=== PATIENT | male | born 1950 | race Two or more races ===

== ENCOUNTER 2023-04-28 09:17 | Inpatient (IN) | payer OTHER ==
[~2023-04-28] VITALS: Ht 177.8 cm; Wt 135.4 kg
[2023-04-28 10:24] LABS: Albumin 3.3 g/dL (3.4-5.0); Calcium 8.5 mg/dL (8.5-10.1)
[2023-04-28 10:26] LABS: INR 1.13 (0.9-1.15); Partial Thromboplastin Time 35.6 SEC (24.5-34.5); Prothrombin Time 11.8 sec (9.3-11.8)
[2023-04-28 10:29] LABS: BUN/Creatinine Ratio 14.3 (10.0-20.0); Bilirubin, Total 0.7 mg/dL (0.2-1.0); Total Protein 7.4 g/dL (6.4-8.2)
[2023-04-28 10:34] LABS: Basophils # (auto) 0 10 ^3/uL (0-0.2); Basophils % (auto) 0.3 % (0.0-2.0); Eosinophils # (auto) 0.2 10 ^3/uL (0-0.8); Eosinophils % (auto) 1.6 % (0.0-7.0); Hematocrit 39.3 % (41.0-53.0); Hemoglobin 13.2 g/dL (13.5-17.5); Lymphocytes # (auto) 0.9 10 ^3/uL (0.4-5.4); Lymphocytes % (auto) 8.5 % (10.0-50.0); Mean Corpuscular Hgb Conc. 33.5 g/dL (32.0-36.0); Mean Corpuscular Volume 86.5 fL (80.0-100.0); Monocytes % (auto) 9.7 % (0.0-12.0); Neutrophils # (auto) 8.1 10 ^3/uL (1.6-8.6); Neutrophils % (auto) 79.9 % (37.0-80.0); Nucleated Red Blood Cells % 0.2 %; Red Blood Cells 4.55 10^6/uL (4.5-5.90); Red Cell Distribution Width 13.3 % (11.8-14.3); White Blood Cell 10.1 10^3/uL (4.4-10.8)
[2023-04-28] MEDS ORDERED: FUROSEMIDE 40 MG/4 ML VIAL IV ONE (12:15)
[2023-04-28 12:57] VITALS: PULSE 53; RESP 24; O2SAT 96
[2023-04-28] MEDS ORDERED: MORPHINE SULFATE INJ 2 MG/ml SYRG IV PRN (22:45)
[2023-04-28] MEDS ORDERED: DOCUSATE SOD 100 MG CAP PO PRN (22:45)
[2023-04-28] MEDS ORDERED: ONDANSETRON HCL 4 MG/2 ML VIAL IV PRN (22:45)
[2023-04-28] MEDS ORDERED: NITROGLYCERIN 0.4 MG SL TAB SL PRN (22:45)
[2023-04-28] MEDS ORDERED: HYDROcodone-ACET 5/325MG TAB PO PRN (22:45)
[2023-04-28] MEDS ORDERED: ACETAMINOPHEN 325 MG TAB PO PRN (22:45)
[2023-04-28 23:23] VITALS: BP 134/59; PULSE 53; RESP 22; TEMP 98.3; O2SAT 96
[2023-04-29] VITALS (13 sets, daily range): BP systolic 150; BP diastolic 85–87; PULSE 53–70; RESP 16–20; TEMP 36.6; O2SAT 92–100
[2023-04-29] MEDS: ALBUTEROL SULF 2.5 MG/0.5ML(0.5%) NEB SOLN NEB SCH ×4 (00:36→18:17)
[2023-04-29] MEDS: IPRATROPIUM BROM 0.5 MG/2.5ML INH SOL NEB SCH ×4 (00:37→18:17)
[2023-04-29 06:13] LABS: Basophils # (auto) 0.1 10 ^3/uL (0-0.2); Eosinophils # (auto) 0.2 10 ^3/uL (0-0.8); Eosinophils % (auto) 2.9 % (0.0-7.0); Hematocrit 36.9 % (41.0-53.0); Hemoglobin 12.8 g/dL (13.5-17.5); Lymphocytes # (auto) 1.3 10 ^3/uL (0.4-5.4); Lymphocytes % (auto) 15.3 % (10.0-50.0); Mean Corpuscular Hemoglobin 29.7 pg (28.0-32.0); Mean Corpuscular Hgb Conc. 34.7 g/dL (32.0-36.0); Mean Corpuscular Volume 85.5 fL (80.0-100.0); Monocytes % (auto) 11.9 % (0.0-12.0); Neutrophils # (auto) 5.8 10 ^3/uL (1.6-8.6); Neutrophils % (auto) 68.9 % (37.0-80.0); Nucleated Red Blood Cells % 0.1 %; Red Blood Cells 4.32 10^6/uL (4.5-5.90); Red Cell Distribution Width 12.9 % (11.8-14.3); White Blood Cell 8.4 10^3/uL (4.4-10.8)
[2023-04-29 06:34] LABS: Calcium 8.5 mg/dL (8.7-10.4)
[2023-04-29 06:36] LABS: BUN/Creatinine Ratio 19.7 (10.0-20.0)
[2023-04-29] MEDS: FUROSEMIDE 40 MG/4 ML VIAL IV SCH ×2 (09:12→22:12)
[2023-04-29] MEDS: ENOXAPARIN SOD 40 MG/0.4 ML SYRINGE SC SCH (09:13)
[2023-04-29 11:08] LABS: Urine Bacteria NONE SEEN /hpf (None Seen); Urine Blood Negative /uL (Negative); Urine Clarity Clear (Clear); Urine Color Yellow (Yellow); Urine Protein, UAD 1+ (Negative); Urine Specific Gravity 1.044 (1.001-1.035); Urine Urobilinogen Normal (Negative); Urine WBC 1 /hpf (0 - 3); Urine pH 6.5 (5.0-8.0)
[2023-04-29] MEDS ORDERED: METO25TA93 PO (18:59)
[2023-04-29] MEDS ORDERED: RIVA10TA PO (18:59)
[2023-04-29] MEDS ORDERED: OMEP-434 PO (18:59)
[2023-04-29] MEDS ORDERED: AMLO1TAB22 PO (18:59)
[2023-04-29] MEDS ORDERED: ATOR10TA52 PO (18:59)
[2023-04-30] VITALS (13 sets, daily range): BP systolic 119–174; BP diastolic 56–73; PULSE 56–85; RESP 16–21; TEMP 98–98.6; O2SAT 92–100
[2023-04-30] MEDS: IPRATROPIUM BROM 0.5 MG/2.5ML INH SOL NEB SCH ×4 (00:31→18:38)
[2023-04-30] MEDS: ALBUTEROL SULF 2.5 MG/0.5ML(0.5%) NEB SOLN NEB SCH ×4 (00:31→18:37)
[2023-04-30 07:07] LABS: Anion Gap 7.7 (5-15); Calcium 8.3 mg/dL (8.5-10.1); Carbon Dioxide 27.3 mmol/L (20-30); Chloride 92 mmol/L (98-107); Potassium 3.8 mmol/L (3.5-5.1); Sodium 127 mmol/L (136-145)
[2023-04-30 07:10] LABS: Basophils # (auto) 0 10 ^3/uL (0-0.2); Basophils % (auto) 0.3 % (0.0-2.0); Eosinophils # (auto) 0.2 10 ^3/uL (0-0.8); Eosinophils % (auto) 2.3 % (0.0-7.0); Hematocrit 38.5 % (41.0-53.0); Hemoglobin 13.3 g/dL (13.5-17.5); Lymphocytes # (auto) 0.8 10 ^3/uL (0.4-5.4); Lymphocytes % (auto) 10.6 % (10.0-50.0); Mean Corpuscular Hemoglobin 29.3 pg (28.0-32.0); Mean Corpuscular Hgb Conc. 34.4 g/dL (32.0-36.0); Mean Corpuscular Volume 85.1 fL (80.0-100.0); Monocytes % (auto) 12.2 % (0.0-12.0); Neutrophils # (auto) 5.9 10 ^3/uL (1.6-8.6); Neutrophils % (auto) 74.6 % (37.0-80.0); Nucleated Red Blood Cells % 0.3 %; Red Blood Cells 4.53 10^6/uL (4.5-5.90); Red Cell Distribution Width 12.9 % (11.8-14.3)
[2023-04-30 07:12] LABS: BUN/Creatinine Ratio 12.5 (10.0-20.0); Blood Urea Nitrogen 9 mg/dL (9-23); Glucose 102 mg/dL (74-106)
[2023-04-30] MEDS: FUROSEMIDE 40 MG/4 ML VIAL IV SCH ×2 (08:38→21:01)
[2023-04-30] MEDS: ENOXAPARIN SOD 40 MG/0.4 ML SYRINGE SC SCH (08:38)
[2023-04-30] MEDS: POTASSIUM CHLORIDE 8 MEQ TAB PO SCH (21:00)
[2023-05-01] VITALS (19 sets, daily range): BP systolic 106–157; BP diastolic 53–67; PULSE 68–142; RESP 18–22; TEMP 97.3–98.6; O2SAT 93–100
[2023-05-01] MEDS: IPRATROPIUM BROM 0.5 MG/2.5ML INH SOL NEB SCH ×5 (00:43→23:36)
[2023-05-01] MEDS: ALBUTEROL SULF 2.5 MG/0.5ML(0.5%) NEB SOLN NEB SCH ×5 (00:43→23:36)
[2023-05-01 06:30] LABS: Chloride 91 mmol/L (98-107); Potassium 3.4 mmol/L (3.5-5.1); Sodium 127 mmol/L (136-145)
[2023-05-01 06:31] LABS: Anion Gap 8.3 (5-15); Calcium 8.4 mg/dL (8.7-10.4); Carbon Dioxide 27.7 mmol/L (20-30)
[2023-05-01 06:36] LABS: BUN/Creatinine Ratio 8.1 (10.0-20.0); Blood Urea Nitrogen 6 mg/dL (9-23); Glucose 102 mg/dL (74-106)
[2023-05-01 06:45] LABS: Basophils # (auto) 0 10 ^3/uL (0-0.2); Basophils % (auto) 0.2 % (0.0-2.0); Eosinophils # (auto) 0.2 10 ^3/uL (0-0.8); Eosinophils % (auto) 2.7 % (0.0-7.0); Hematocrit 37.5 % (41.0-53.0); Lymphocytes # (auto) 1.2 10 ^3/uL (0.4-5.4); Lymphocytes % (auto) 15.3 % (10.0-50.0); Mean Corpuscular Hemoglobin 29.8 pg (28.0-32.0); Mean Corpuscular Hgb Conc. 34.6 g/dL (32.0-36.0); Mean Corpuscular Volume 86.2 fL (80.0-100.0); Monocytes % (auto) 13.6 % (0.0-12.0); Neutrophils # (auto) 5.2 10 ^3/uL (1.6-8.6); Neutrophils % (auto) 68.2 % (37.0-80.0); Nucleated Red Blood Cells % 0.1 %; Red Blood Cells 4.35 10^6/uL (4.5-5.90); Red Cell Distribution Width 12.8 % (11.8-14.3); White Blood Cell 7.6 10^3/uL (4.4-10.8)
[2023-05-01] MEDS: POTASSIUM CHLORIDE 8 MEQ TAB PO SCH ×2 (09:36→22:29)
[2023-05-01] MEDS: ENOXAPARIN SOD 40 MG/0.4 ML SYRINGE SC SCH (09:37)
[2023-05-01] MEDS: FUROSEMIDE 40 MG/4 ML VIAL IV SCH ×2 (09:37→22:31)
[2023-05-01 10:50] LABS: Base Excess 2.2 mmol/L (-2.0-2.0)
[2023-05-01] MEDS ORDERED: LISI10TA34 PO (13:24)
[2023-05-01] MEDS ORDERED: BUME2TAB5 PO (13:24)
[2023-05-01] MEDS ORDERED: dilTIAZem 25 MG/5 ML VIAL IV ONE (19:30)
[2023-05-01] MEDS ORDERED: AMIODARONE BOLUS KIT 100 ML IV ONE (20:00)
[2023-05-01] MEDS ORDERED: AMIODARONE 450mg/250ml AE 250 ML IV ONE (20:15)
[2023-05-01] MEDS ORDERED: APIXABAN 5 MG TAB PO ONE (20:30)
[2023-05-01 20:34] LABS: Potassium 3.6 mmol/L (3.5-5.1)
[2023-05-01 20:41] LABS: Magnesium 1.7 mg/dL (1.6-2.6)
[2023-05-02] VITALS (7 sets, daily range): BP systolic 133–148; BP diastolic 34–59; PULSE 77–86; RESP 18–20; TEMP 98.6–98.7; O2SAT 93–97
[2023-05-02] MEDS ORDERED: AMIODARONE 450mg/250ml AE 250 ML IV SCH (02:15)
[2023-05-02] MEDS: ALBUTEROL SULF 2.5 MG/0.5ML(0.5%) NEB SOLN NEB SCH ×2 (06:14→11:32)
[2023-05-02] MEDS: IPRATROPIUM BROM 0.5 MG/2.5ML INH SOL NEB SCH ×2 (06:14→11:32)
[2023-05-02 06:59] LABS: Chloride 90 mmol/L (98-107); Potassium 3.5 mmol/L (3.5-5.1); Sodium 125 mmol/L (136-145)
[2023-05-02 07:00] LABS: Calcium 8.6 mg/dL (8.7-10.4)
[2023-05-02 07:05] LABS: BUN/Creatinine Ratio 8.8 (10.0-20.0); Blood Urea Nitrogen 7 mg/dL (9-23); Glucose 113 mg/dL (74-106)
[2023-05-02 07:08] LABS: Basophils # (auto) 0 10 ^3/uL (0-0.2); Basophils % (auto) 0.3 % (0.0-2.0); Eosinophils # (auto) 0.2 10 ^3/uL (0-0.8); Eosinophils % (auto) 2.8 % (0.0-7.0); Hematocrit 38.9 % (41.0-53.0); Hemoglobin 13.4 g/dL (13.5-17.5); Lymphocytes # (auto) 1.2 10 ^3/uL (0.4-5.4); Lymphocytes % (auto) 13.4 % (10.0-50.0); Mean Corpuscular Hemoglobin 29.8 pg (28.0-32.0); Mean Corpuscular Hgb Conc. 34.4 g/dL (32.0-36.0); Mean Corpuscular Volume 86.7 fL (80.0-100.0); Monocytes # (auto) 0.9 10 ^3/uL (0-1.3); Monocytes % (auto) 10.1 % (0.0-12.0); Neutrophils # (auto) 6.6 10 ^3/uL (1.6-8.6); Neutrophils % (auto) 73.4 % (37.0-80.0); Nucleated Red Blood Cells % 0.1 %; Red Blood Cells 4.49 10^6/uL (4.5-5.90); Red Cell Distribution Width 12.6 % (11.8-14.3)
[2023-05-02] MEDS: FUROSEMIDE 40 MG/4 ML VIAL IV SCH (10:00)
[2023-05-02] MEDS: POTASSIUM CHLORIDE 8 MEQ TAB PO SCH (10:23)
== END 2023-05-02 12:40 | disposition home or self-care (01) | DRG 291 ==
LOC: ER 09:17 → TELE 04-29 02:30 → TELE-CENTR 04-29 21:15
PROVIDERS: ADMIT Nurse Practitioner Family; ATTEND Hospitalist
PROC: 5A09357 Assistance with Respiratory Ventilation, Less than 24 Consecutive Hours, Continuous Positive Airway Pressure (ICD-10-PCS; principal; 2023-04-29)
DX: I11.0 Hypertensive heart disease with heart failure (principal); I50.43 Acute on chronic combined systolic (congestive) and diastolic (congestive) heart failure; J96.20 Acute and chronic respiratory failure, unspecified whether with hypoxia or hypercapnia; E87.1 Hypo-osmolality and hyponatremia; Z68.41 Body mass index [BMI] 40.0-44.9, adult; E66.01 Morbid (severe) obesity due to excess calories; G47.30 Sleep apnea, unspecified; R00.1 Bradycardia, unspecified; R26.2 Difficulty in walking, not elsewhere classified; R79.89 Other specified abnormal findings of blood chemistry
CPT/HCPCS: 36415; 36600; 71045; 71275; 80048; 80053; 81001; 82805; 83735; 83880; 84132; 84484; 85025; 85610; 85730; 86703; 86706; 86708; 86803; 87340; 93005; 93306; 93970; 94640; 94660; 97110; 97116; 97163; 97530; 99291; G0378

== ENCOUNTER 2023-06-21 13:56 | Emergency (ER) | payer OTHER ==
[~2023-06-21] VITALS: Ht 177.8 cm; Wt 131.8 kg
[~2023-06-21 13:56] MED LIST: ATOR10TA52 PO; BUME2TAB5 PO; LISI10TA34 PO; METO25TA93 PO; OMEP-434 PO; RIVA10TA PO
[2023-06-21 14:40] LABS: Basophils # (auto) 0.1 10 ^3/uL (0-0.2); Basophils % (auto) 1.5 % (0.0-2.0); Eosinophils # (auto) 0.3 10 ^3/uL (0-0.8); Eosinophils % (auto) 3.4 % (0.0-7.0); Hematocrit 41.9 % (41.0-53.0); Lymphocytes # (auto) 1.7 10 ^3/uL (0.4-5.4); Lymphocytes % (auto) 21.1 % (10.0-50.0); Mean Corpuscular Hemoglobin 29.5 pg (28.0-32.0); Mean Corpuscular Hgb Conc. 33.4 g/dL (32.0-36.0); Mean Corpuscular Volume 88.5 fL (80.0-100.0); Monocytes # (auto) 0.7 10 ^3/uL (0-1.3); Monocytes % (auto) 9.2 % (0.0-12.0); Neutrophils # (auto) 5.3 10 ^3/uL (1.6-8.6); Neutrophils % (auto) 64.8 % (37.0-80.0); Red Blood Cells 4.74 10^6/uL (4.5-5.90); Red Cell Distribution Width 13.1 % (11.8-14.3); White Blood Cell 8.1 10^3/uL (4.4-10.8)
[2023-06-21 14:55] LABS: Alanine Aminotransferase 13 U/L (7-40); Albumin 4.2 g/dL (3.2-4.8); Alkaline Phosphatase 125 U/L (46-116); Anion Gap 8 (5-15); Aspartate Aminotransferase 20 U/L (13-40); BUN/Creatinine Ratio 11.7 (10.0-20.0); Bilirubin, Total 0.7 mg/dL (0.2-1.0); Blood Urea Nitrogen 12 mg/dL (9-23); Calcium 8.7 mg/dL (8.7-10.4); Carbon Dioxide 27 mmol/L (20-30); Chloride 100 mmol/L (98-107); Glucose 125 mg/dL (74-106); Potassium 3.9 mmol/L (3.5-5.1); Sodium 135 mmol/L (136-145); Total Protein 6.4 g/dL (5.7-8.2)
[2023-06-21] MEDS ORDERED: SODIUM CHLORIDE 0.9% 1,000 ML IV ONE (16:00)
[2023-06-21 16:45] LABS: INR 1.15 (0.9-1.15); Partial Thromboplastin Time 33.6 SEC (24.5-34.5)
[2023-06-21] MEDS ORDERED: MECLIZINE HCL 25 MG TAB PO ONE (18:15)
[2023-06-21] MEDS ORDERED: MECL1TAB42 PO ×3 (18:38→19:08)
[2023-06-21 19:26] VITALS: BP 173/73; PULSE 60; RESP 18; TEMP 97.8; O2SAT 94
== END 2023-06-21 19:28 | disposition home or self-care (01) ==
LOC: ER 13:56
DX: I11.0 Hypertensive heart disease with heart failure (principal); I50.9 Heart failure, unspecified; R42 Dizziness and giddiness; E66.9 Obesity, unspecified; E78.5 Hyperlipidemia, unspecified; Z68.35 Body mass index [BMI] 35.0-35.9, adult; Z79.899 Other long term (current) drug therapy
CPT/HCPCS: 36415; 70450; 71046; 80053; 83735; 84484; 85025; 85610; 85730; 93005; 99285; J8597

== ENCOUNTER 2023-10-13 16:44 | Emergency (ER) | payer OTHER, MEDICAID ==
[~2023-10-13] VITALS: Ht 177.8 cm; Wt 130.0 kg
[~2023-10-13 16:44] MED LIST changes: +MECL1TAB42 PO
[2023-10-13 20:00] VITALS: PULSE 59; RESP 15; O2SAT 97
[2023-10-13] MEDS: KETAMINE 50mg/ML 10ml Vial (500mg/10ml) IV ONE (20:17)
[2023-10-13] MEDS: KETAMINE 50mg/ML 1ml syringe IV ONE (20:41)
[2023-10-13 22:30] VITALS: TEMP 97.5
[2023-10-13 23:34] VITALS: BP 175/74; PULSE 63; RESP 18; O2SAT 94
[2023-10-17] MEDS ORDERED: FUR20T PO (01:20)
[2023-10-17] MEDS ORDERED: RIV20T PO (01:20)
== END 2023-10-13 23:52 | disposition home or self-care (01) ==
LOC: ER 16:44
DX: S43.004A Unspecified dislocation of right shoulder joint, initial encounter (principal); I10 Essential (primary) hypertension; E78.5 Hyperlipidemia, unspecified; Z79.899 Other long term (current) drug therapy; W01.0XXA Fall on same level from slipping, tripping and stumbling without subsequent striking against object, initial encounter; Y93.89 Activity, other specified; Y92.89 Other specified places as the place of occurrence of the external cause; Y99.8 Other external cause status
CPT/HCPCS: 23650; 73020; 73030; 99152

== ENCOUNTER 2023-10-15 15:20 | Inpatient (IN) | payer OTHER, MEDICAID ==
[~2023-10-15] VITALS: Ht 177.8 cm; Wt 141.2 kg
[2023-10-15] MEDS: dilTIAZem 25 MG/5 ML VIAL IV ONE (15:45)
[2023-10-15] MEDS: SODIUM CHLORIDE 0.9% 1,000 ML IVB ONE (16:20)
[2023-10-15 16:28] LABS: Basophils # (auto) 0 10 ^3/uL (0-0.2); Basophils % (auto) 0.2 % (0.0-2.0); Eosinophils # (auto) 0 10 ^3/uL (0-0.8); Eosinophils % (auto) 0.4 % (0.0-7.0); Lymphocytes # (auto) 1.2 10 ^3/uL (0.4-5.4); Mean Corpuscular Hemoglobin 28.9 pg (28.0-32.0); Mean Corpuscular Hgb Conc. 32.6 g/dL (32.0-36.0); Mean Corpuscular Volume 88.8 fL (80.0-100.0); Monocytes # (auto) 1.5 10 ^3/uL (0-1.3); Monocytes % (auto) 12.6 % (0.0-12.0); Neutrophils # (auto) 9.2 10 ^3/uL (1.6-8.6); Neutrophils % (auto) 76.8 % (37.0-80.0); Nucleated Red Blood Cells % 0.1 %; Red Cell Distribution Width 13.5 % (11.8-14.3)
[2023-10-15 16:56] LABS: Chloride 99 mmol/L (98-107); Potassium 3.7 mmol/L (3.5-5.1); Sodium 135 mmol/L (136-145)
[2023-10-15 16:57] LABS: Anion Gap 8 (5-15); Calcium 9.9 mg/dL (8.5-10.1); Carbon Dioxide 28 mmol/L (20-30)
[2023-10-15 17:02] LABS: BUN/Creatinine Ratio 11.9 (10.0-20.0); Blood Urea Nitrogen 16 mg/dL (9-23); Glucose 108 mg/dL (74-106)
[2023-10-15 17:03] LABS: Blood Alcohol < 3.0 mg/dL (<10)
[2023-10-15] MEDS ORDERED: HYDROcodone-ACET 5/325MG TAB PO PRN (23:00)
[2023-10-15] MEDS ORDERED: NITROGLYCERIN 0.4 MG SL TAB SL PRN (23:00)
[2023-10-15] MEDS ORDERED: DOCUSATE SOD 100 MG CAP PO PRN (23:00)
[2023-10-15] MEDS ORDERED: ACETAMINOPHEN 325 MG TAB PO PRN (23:00)
[2023-10-15] MEDS ORDERED: MORPHINE SULFATE INJ 2 MG/ml SYRG IV PRN ×2 (23:00)
[2023-10-15] MEDS ORDERED: ONDANSETRON HCL 4 MG/2 ML VIAL IV PRN (23:00)
[2023-10-15 23:11] VITALS: PULSE 94; RESP 24; O2SAT 93
[2023-10-15] MEDS: ASPirin 325 MG TAB PO ONE (23:26)
[2023-10-15] MEDS: ENOXAPARIN SOD 100 MG/1 ML SYRINGE SC SCH (23:27)
[2023-10-15 23:33] LABS: INR 1.02 (0.9-1.15); Prothrombin Time 10.7 sec (9.3-11.8)
[2023-10-16 00:09] LABS: Alanine Aminotransferase 11 U/L (7-40); Alkaline Phosphatase 82 U/L (46-116); Anion Gap 9 (5-15); Aspartate Aminotransferase 25 U/L (13-40); BUN/Creatinine Ratio 8.6 (10.0-20.0); Bilirubin, Total 1.4 mg/dL (0.2-1.0); Blood Urea Nitrogen 14 mg/dL (9-23); Calcium 9.1 mg/dL (8.7-10.4); Carbon Dioxide 22 mmol/L (20-30); Chloride 103 mmol/L (98-107); Glucose 111 mg/dL (74-106); Potassium 3.7 mmol/L (3.5-5.1); Sodium 134 mmol/L (136-145); Total Protein 6.6 g/dL (5.7-8.2)
[2023-10-16 06:56] LABS: Anion Gap 9 (5-15); Carbon Dioxide 26 mmol/L (20-30); Chloride 101 mmol/L (98-107); Potassium 3.5 mmol/L (3.5-5.1); Sodium 136 mmol/L (136-145)
[2023-10-16 07:02] LABS: Glucose 100 mg/dL (74-106)
[2023-10-16 07:10] LABS: Basophils # (auto) 0.1 10 ^3/uL (0-0.2); Basophils % (auto) 0.5 % (0.0-2.0); Eosinophils # (auto) 0.3 10 ^3/uL (0-0.8); Eosinophils % (auto) 2.5 % (0.0-7.0); Hematocrit 35.5 % (41.0-53.0); Hemoglobin 11.9 g/dL (13.5-17.5); Lymphocytes # (auto) 2.1 10 ^3/uL (0.4-5.4); Lymphocytes % (auto) 20.5 % (10.0-50.0); Mean Corpuscular Hemoglobin 29.7 pg (28.0-32.0); Mean Corpuscular Hgb Conc. 33.5 g/dL (32.0-36.0); Mean Corpuscular Volume 88.8 fL (80.0-100.0); Monocytes # (auto) 1.3 10 ^3/uL (0-1.3); Monocytes % (auto) 12.4 % (0.0-12.0); Neutrophils # (auto) 6.6 10 ^3/uL (1.6-8.6); Neutrophils % (auto) 64.1 % (37.0-80.0); Nucleated Red Blood Cells % 0.1 %; Red Blood Cells 3.99 10^6/uL (4.5-5.90); Red Cell Distribution Width 13.5 % (11.8-14.3); White Blood Cell 10.4 10^3/uL (4.4-10.8)
[2023-10-16 07:15] LABS: BUN/Creatinine Ratio 13.9 (10.0-20.0); Blood Urea Nitrogen 19 mg/dL (9-23)
[2023-10-16 08:00] VITALS: PULSE 78; RESP 26; O2SAT 96
[2023-10-16] MEDS: METOPROLOL SUCCINATE XL 50 MG TAB PO SCH (10:22)
[2023-10-16] MEDS: ATORVASTATIN 20 MG TAB PO SCH (10:23)
[2023-10-16] MEDS: ASPirin 81 mg TAB PO SCH (10:23)
[2023-10-16] MEDS: PANTOPRAZOLE 40 MG/10 ML VIAL INJ IV SCH (10:23)
[2023-10-16 12:34] LABS: Urine Bacteria NONE SEEN /hpf (None Seen); Urine Blood Negative /uL (Negative); Urine Clarity HAZY (Clear); Urine Color Yellow (Yellow); Urine Hyaline Cast FEW /lpf (0 - 2); Urine Mucus FEW (None Seen); Urine Protein, UAD 1+ (Negative); Urine Specific Gravity 1.025 (1.001-1.035); Urine WBC 12 /hpf (0 - 3)
[2023-10-16] MEDS: LISINOPRIL 10 MG TAB PO SCH (18:28)
[2023-10-16] MEDS: FUROSEMIDE 20 MG/2 ML VIAL IV SCH (18:29)
[2023-10-16 20:00] VITALS: PULSE 88; RESP 13; O2SAT 98
[2023-10-17 01:00] VITALS: BP 147/70; PULSE 77; RESP 24; TEMP 97.4
[2023-10-17] MEDS ORDERED: METO1TAB9 PO (01:20)
[2023-10-17] MEDS ORDERED: FUR20T PO ×2 (01:20→14:57)
[2023-10-17] MEDS ORDERED: RIV20T PO ×2 (01:20→14:57)
[2023-10-17] MEDS ORDERED: IRBE300T43 PO (01:20)
[2023-10-17] MEDS ORDERED: ATOR40TA52 PO (01:20)
[2023-10-17 05:11] LABS: Basophils # (auto) 0 10 ^3/uL (0-0.2); Basophils % (auto) 0.4 % (0.0-2.0); Chloride 104 mmol/L (98-107); Eosinophils # (auto) 0.3 10 ^3/uL (0-0.8); Eosinophils % (auto) 3.1 % (0.0-7.0); Hematocrit 34.3 % (41.0-53.0); Hemoglobin 11.6 g/dL (13.5-17.5); Lymphocytes # (auto) 1.5 10 ^3/uL (0.4-5.4); Lymphocytes % (auto) 16.8 % (10.0-50.0); Mean Corpuscular Hemoglobin 29.9 pg (28.0-32.0); Mean Corpuscular Hgb Conc. 33.8 g/dL (32.0-36.0); Mean Corpuscular Volume 88.4 fL (80.0-100.0); Monocytes % (auto) 11.4 % (0.0-12.0); Neutrophils % (auto) 68.3 % (37.0-80.0); Nucleated Red Blood Cells % 0.1 %; Potassium 3.8 mmol/L (3.5-5.1); Red Blood Cells 3.88 10^6/uL (4.5-5.90); Red Cell Distribution Width 13.4 % (11.8-14.3); Sodium 137 mmol/L (136-145); White Blood Cell 8.8 10^3/uL (4.4-10.8)
[2023-10-17 05:12] LABS: Anion Gap 5 (5-15); Calcium 8.8 mg/dL (8.5-10.1); Carbon Dioxide 28 mmol/L (20-30)
[2023-10-17 05:17] LABS: BUN/Creatinine Ratio 14.3 (10.0-20.0); Blood Urea Nitrogen 14 mg/dL (9-23); Glucose 102 mg/dL (74-106)
[2023-10-17 06:00] VITALS: BP 157/71; PULSE 83; RESP 20; TEMP 98.3; O2SAT 94
[2023-10-17 08:00] VITALS: PULSE 72; RESP 16; O2SAT 98
[2023-10-17 08:30] VITALS: BP 167/66; PULSE 70; PULSE 79; RESP 18; TEMP 98.1; O2SAT 96
[2023-10-17] MEDS ORDERED: METO-159 PO ×2 (08:57→14:57)
[2023-10-17] MEDS ORDERED: MULTTAB99 PO (08:58)
[2023-10-17] MEDS ORDERED: OMEP20TA PO (08:59)
[2023-10-17] MEDS: RIVAROXABAN 10 MG TAB PO SCH (10:54)
[2023-10-17] MEDS: cloNIDine HCL 0.1 MG TAB PO ONE (13:46)
[2023-10-17] MEDS ORDERED: AMIO200T33 PO (14:57)
[2023-10-17] MEDS ORDERED: RIVAROXABAN 10 MG TAB PO SCH (18:00)
[2023-10-17] MEDS ORDERED: LISINOPRIL 10 MG TAB PO SCH (22:00)
[2023-10-18] MEDS ORDERED: METOPROLOL SUCCINATE XL 50 MG TAB PO SCH (10:00)
[2023-10-18] MEDS ORDERED: RIVAROXABAN 10 MG TAB PO SCH (10:00)
== END 2023-10-17 17:00 | disposition home or self-care (01) | DRG 281 ==
LOC: ER 15:20 → TELE 23:07 → TELE-WESTW 10-16 23:17
PROVIDERS: ADMIT Nurse Practitioner Family; ATTEND Internal Medicine
DX: I21.4 Non-ST elevation (NSTEMI) myocardial infarction (principal); I13.0 Hypertensive heart and chronic kidney disease with heart failure and stage 1 through stage 4 chronic kidney disease, or unspecified chronic kidney disease; I48.20 Chronic atrial fibrillation, unspecified; I50.30 Unspecified diastolic (congestive) heart failure; Z68.41 Body mass index [BMI] 40.0-44.9, adult; R41.82 Altered mental status, unspecified; D72.829 Elevated white blood cell count, unspecified; E78.5 Hyperlipidemia, unspecified; N18.9 Chronic kidney disease, unspecified; E66.9 Obesity, unspecified; Z82.49 Family history of ischemic heart disease and other diseases of the circulatory system; Z82.3 Family history of stroke
CPT/HCPCS: 36415; 70450; 71045; 80048; 80053; 80320; 81001; 82962; 83880; 84439; 84443; 84484; 85025; 85610; 93005; 93306; 93886; 97163; C9113; G0378

== ENCOUNTER 2024-01-27 06:10 | Day surgery (SDC) | payer OTHER, MEDICAID ==
[~2024-01-27] VITALS: Ht 177.8 cm; Wt 123.4 kg
[~2024-01-27 06:10] MED LIST changes: +ASCO500T11 PO; -ATOR10TA52 PO; +ATOR40TA52 PO; -BUME2TAB5 PO; +CINN1CAP2 PO; +FIBECAP OR; +FUR20T PO; +IRBE300T43 PO; -LISI10TA34 PO; -MECL1TAB42 PO; +METO-159 PO; -METO25TA93 PO; +MULTTAB99 PO; -OMEP-434 PO; +OMEP20TA PO; +RIV20T PO; -RIVA10TA PO; +TURM500C3 OR
[2024-01-27] MEDS ORDERED: ceFAZolin 2 GM/D5W50ml 50 ML IV ONE (06:30)
[2024-01-27] MEDS ORDERED: LIDOCAINE 2% JELLY 11ml (GLYDO) ONE (06:39)
[2024-01-27] MEDS ORDERED: MEPERIDINE HCL (50 MG/ML) 1 ML VIAL ONE (06:57)
[2024-01-27] MEDS ORDERED: GLYCOPYRROLATE 0.2 MG/ML 1ML VIAL ONE (06:57)
[2024-01-27] MEDS ORDERED: MIDAZOLAM HCL 2MG/2ML 2ml VIAL (1mg/ml) ONE (06:57)
[2024-01-27] MEDS ORDERED: DexAMETHasone SOD PHOS 10MG/1ML VIAL INJ ONE (06:57)
[2024-01-27] MEDS ORDERED: ONDANSETRON HCL 4 MG/2 ML VIAL ONE (06:57)
[2024-01-27] MEDS ORDERED: fentaNYL CITRATE 100 MCG/2 ML VL ONE (06:57)
[2024-01-27] MEDS ORDERED: LIDOCAINE 1% INJ PF 5ML AMP ONE ×2 (06:57→11:51)
[2024-01-27] MEDS ORDERED: SODIUM CHLORIDE LOCK 50 ML ONE (06:57)
[2024-01-27] MEDS ORDERED: NEOSTIGMINE 1 MG/ML INJ (10mg/10ML VIAL) ONE (06:57)
[2024-01-27] MEDS ORDERED: ROCURONIUM 10MG/ML 10ML VIAL IV ONE (06:57)
[2024-01-27] MEDS ORDERED: KETAMINE 50mg/ML 10ml Vial 10 ML ONE (06:58)
[2024-01-27] MEDS ORDERED: BUPIVACAINE HCL 0 ML ONE (07:01)
[2024-01-27] MEDS ORDERED: HYDROmorphone HCL 2 MG/ML VL/or syr IV PRN ×2 (07:30)
[2024-01-27] MEDS ORDERED: fentaNYL CITRATE 100 MCG/2 ML VL IV PRN (07:30)
[2024-01-27] MEDS ORDERED: METOCLOPRAMIDE HCL 5MG/ml INJ 2ml VIAL IV ONE (07:30)
[2024-01-27] MEDS ORDERED: MORPHINE SULFATE INJ 2 MG/ml SYRG IV PRN (07:30)
[2024-01-27] MEDS: EPINEPHrine HCL 1 MG/1 ML AMP ONE (08:52)
[2024-01-27] MEDS ORDERED: ROPIVACAINE 0.5% (5MG/ML) 20ML AMPULE IJ ONE (10:15)
[2024-01-27 10:52] VITALS: TEMP 97.4; O2SAT 98
[2024-01-27] MEDS ORDERED: hydrALAZINE HCL 20 MG/ML VL ONE (11:35)
[2024-01-27] MEDS: hydrALAZINE HCL 20 MG/ML VL IV ONE (11:36)
[2024-01-27] MEDS: KETOROLAC TROMETH 30 MG/ML 1ML VIAL IV ONE (11:47)
[2024-01-27 11:49] VITALS: PULSE 72; RESP 18; O2SAT 93
[2024-01-27] MEDS: ALBUTEROL SULF 2.5 MG/0.5ML(0.5%) NEB SOLN ONE (11:49)
[2024-01-27] MEDS: ALBUTEROL SULF 2.5 MG/0.5ML(0.5%) NEB SOLN NEB ONE (11:49)
[2024-01-27] MEDS: IPRATROPIUM BROM 0.5 MG/2.5ML INH SOL NEB ONE (11:49)
[2024-01-27] MEDS: IPRATROPIUM BROM 0.5 MG/2.5ML INH SOL ONE (11:49)
[2024-01-27 11:50] VITALS: O2SAT 93
[2024-01-27 11:59] VITALS: PULSE 78; RESP 12; O2SAT 100
== END 2024-01-27 13:02 | disposition home or self-care (01) ==
LOC: SUR 06:10
PROVIDERS: ATTEND Orthopaedic Surgery Sports Medicine
DX: M75.121 Complete rotator cuff tear or rupture of right shoulder, not specified as traumatic (principal); R06.02 Shortness of breath; S46.211A Strain of muscle, fascia and tendon of other parts of biceps, right arm, initial encounter; S43.491A Other sprain of right shoulder joint, initial encounter; M65.811 Other synovitis and tenosynovitis, right shoulder; M94.211 Chondromalacia, right shoulder; I13.0 Hypertensive heart and chronic kidney disease with heart failure and stage 1 through stage 4 chronic kidney disease, or unspecified chronic kidney disease; I50.30 Unspecified diastolic (congestive) heart failure; N18.9 Chronic kidney disease, unspecified; E66.01 Morbid (severe) obesity due to excess calories; I25.10 Atherosclerotic heart disease of native coronary artery without angina pectoris; I48.91 Unspecified atrial fibrillation; E78.5 Hyperlipidemia, unspecified; K21.9 Gastro-esophageal reflux disease without esophagitis; G62.9 Polyneuropathy, unspecified; J44.9 Chronic obstructive pulmonary disease, unspecified; I25.2 Old myocardial infarction; Z68.41 Body mass index [BMI] 40.0-44.9, adult; X58.XXXA Exposure to other specified factors, initial encounter; Y93.89 Activity, other specified; Y92.89 Other specified places as the place of occurrence of the external cause; Y99.8 Other external cause status
CPT/HCPCS: 29826; 29827; 94640; C1713; J0171; J0360; J0690; J1100; J1885; J2175; J2250; J2405; J2795; J3010; J7644; A4565; J3490

== ENCOUNTER 2025-03-16 14:40 | Emergency (ER) | payer OTHER ==
[~2025-03-16] VITALS: Ht 185.4 cm; Wt 127.0 kg
[~2025-03-16 14:40] MED LIST changes: -FUR20T PO; +FURO20TA4 PO
[2025-03-16 15:00] VITALS: PULSE 66; RESP 14; O2SAT 94
--- NOTE | 2025-03-16 15:19 | ECG ---
[facility] Test Date: 2025-03-16 Test Time: 15:00:44 Pat Name: RAFAEL LANIER Department: ED Room: Gender: M Washing Machine Repairer: HINA : 1950 Requested By: SYMONE VEGA Order Number: [id number] Reading MD: Rashard Zamora Measurements Intervals [place] Rate: 63 P: 62 AR: 178 QRS: 27 QRSD: 92 T: 241 QT: 416 QTc: 426 Interpretive Statements Sinus rhythm LVH with secondary repolarization abnormality Inferior infarct, age indeterminate Electronically Signed On 03-17-2025 19:06:46 PDT by Rashard Zamora Please click the below link to view image of tracing.
--- NOTE | 2025-03-16 15:31 | ED.PDOC ---
History of Present Illness HPI Comments Patient is a 74-year-old male with a past medical history of hypertension, hyperlipidemia, atrial fibrillation presented to the ED via EMS after the family found him confused. According to the EMS on arrival patient was A&O x2 and the family reported at baseline patient is A&O x4. No reported history of fall or trauma. Patient denied any fever, chills, cough, dysuria, abdominal pain. Was reportedly scheduled for a colonoscopy yesterday but was not done because of poor bowel preparation. On assessment patient was A&O x2 with disorientation to time and did not know why he was here in the hospital. Denied any other acute complaints Chief Complaint: ALOC Time Seen by MD: 14:52 Primary Care Provider: CHERELLE Reviewed Notes: Nurses Notes, Bindery Manager Notes, Medications, Allergies Allergies: Coded Allergies: No Known Drug Allergy (Verified Allergy, Unknown, 04/28/23) Home Meds Active Scripts Metoprolol Tartrate (Metoprolol Tartrate) 100 Mg Tab, 100 MG PO BID, #120 MG Prov:TERRI GRIFFIN MD 10/17/23 Rivaroxaban (Xarelto Tablet) 20 Mg Tb, 1 TAB PO DAILY, #90 TAB Prov:TERRI GRIFFIN MD 10/17/23 Furosemide (Furosemide) 20 Mg Tab, 40 MG PO DAILY, #120 TAB Prov:TERRI GRIFFIN MD 10/17/23 Reported Medications Curcuma Longa (Turmeric) Extra (TURMERIC) 500 Mg Cap, 2 CAP OR BID, CAP 01/23/24 Cinnamomum Blanco Extract (Cinnamon Extract) 500 Mg Cap, 2 CAP PO QPM, CAP 01/23/24 Ascorbic Acid (VITAMIN C TABLET) 500 Mg Tb, 500 MG PO DAILY, TAB 01/23/24 Fiber (FIBER FORMULA) Cap, 2 OR BID, CAP 01/23/24 Omeprazole (Gnp Omeprazole) 20 Mg Tab, 1 TAB PO DAILY, #90 TAB 1 Refill 10/17/23 Multiple Vitamin (Mvi Tab) 1 Tab Tb, 1 TAB PO DAILY, TAB 10/17/23 Atorvastatin Calcium (ATORVASTATIN CALCIUM) 40 Mg Tab, 1 TAB PO DAILY 10/17/23 Irbesartan (IRBESARTAN) 300 Mg Tab, 1 TAB PO DAILY 10/17/23 Information Source: Patient Mode of Arrival: EMS Past Medical History PAST MEDICAL HISTORY: AFIB, Cancer, High Lipids, HTN Surgical History (Other): Abdominal surgery Family History Family History: Reviewed,noncontributory to illness Social History Smoker: Non-Smoker Alcohol: Denies ETOH Use Drugs: Denies Drug Use Lives In: Home Constitutional: denies: chills, diaphoresis, fatigue, fever, malaise, sweats, weakness, others EENTM: denies: blurred vision, double vision, ear bleeding, ear discharge, ear drainage, ear pain, ear ringing, eye pain, eye redness, hearing loss, mouth pain, mouth swelling, nasal discharge, nose bleeding, nose congestion, nose pain, photophobia, tearing, throat pain, throat swelling, voice changes, others Respiratory: denies: cough, hemoptysis, orthopnea, SOB at rest, shortness of breath, SOB with excertion, stridor, wheezing, others Cardiovascular: denies: chest pain, dizzy spells, diaphoresis, Dyspnea on exertion, edema, irregular heart beat, left arm pain, lightheadedness, palpitat ions, PND, syncope, others Gastrointestinal: denies: abdomen distended, abdominal pain, blood streaked bow els, constipated, diarrhea, dysphagia, difficulty swallowing, hematemesis, melena, nausea, poor appetite, poor fluid intake, rectal bleeding, rectal pain, vomiting, others Genitourinary: denies: burning, dysuria, flank pain, frequency, hematuria, incontinence, penile discharge, penile sore, pain, testicle pain, testicle swelling, urgency, others Neurological: denies: dizziness, fainting, headache, left sided numbness, left sided weakness, numbness, paresthesia, pre-existing deficit, right sided numbness, right sided weakness, seizure, speech problems, tingling, tremors, weakness, others Musculoskeletal: denies: back pain, gout, joint pain, joint swelling, muscle pain, muscle stiffness, neck pain, others Integumetry: denies: bruises, change in color, change in hair/nails, dryness, laceration, lesions, lumps, rash, wounds, others Hematologic/Lymphatic: denies: anemia, blood clots, easy bleeding, easy br uising, swollen glands, others Endocrine: denies: excessive hunger, excessive sweating, excessive thirst, excessive urination, flushing, intolerance to cold, intolerance to heat, unexplained weight gain, unexplained weight loss, others Psychiatric: denies: anxiety, bipolar disorder, depression, hopeless, panic disorder, schizophrenia, sleepless, suicidal, others Physical Exam General Appearance: Mild Distress HEENT: Normal ENT Inspection, Pharynx Normal, TMs Normal Neck: Full Range of Motion, None, Non-Tender, Normal, Normal Inspection Respiratory: Chest Non-Tender, Lungs Clear, No Accessory Muscle Use, No Respiratory Distress, Normal Breath Sounds Cardiovascular: No Edema, No JVD, No Murmur, No Gallop, Normal Peripheral Pulses, Regular Rate/Rhythm Breast Exam: Deferred Gastrointestinal: No Organomegaly, Non Tender, No Pulsatile Mass, Normal Bowel Sounds, Soft Genitalia: Deferred Pelvic: Deferred Rectal: Deferred Extremities: No calf tenderness, Normal capillary refill, Normal inspection, Normal range of motion, Non-tender, No pedal edema Neurologic: Alert, 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 Was a procedure done?: No EKG EKG : Pulse Rate (adult): 63 [place]: Normal Cardiac Rhythm: NSR Block: None Hypertrophy: LVH ST: Normal Differential Dx Considerations may include: Acute metabolic encephalopathy, TIA, toxic encephalopathy X-Ray, Labs, Meds, VS Vital Signs Date Time Temp Pulse Resp B/P (MAP) Pulse Ox O2 Delivery O2 Flow Rate FiO2 03/16/25 16:10 62 03/16/25 16:00 60 17 113/74 (87) 92 03/16/25 15:46 63 03/16/25 15:00 66 14 94 Room Air* 0 21 03/16/25 15:00 63 03/16/25 15:00 98.2 66 14 131/71 (91) 94 98.2 03/16/25 14:45 98.3 77 16 133/77 (95 92 98.3 Lab Test 03/16/25 17:09 03/16/25 16:50 03/16/25 15:33 03/16/25 15:03 Range/Units Sodium Level Pending Potassium Level Pending Chloride Level Pending Carbon Dioxide Level Pending Anion Gap Pending Blood Urea Nitrogen Pending Creatinine Pending Glomerular Filtration Rate Calc Pending BUN/Creatinine Ratio Pending Serum Glucose Pending Calcium Level Pending Plasma/Serum Blood Alcohol Pending Urine Color Yellow Yellow Urine Clarity Clear Clear Urine pH 6.5 5.0-9.0 Urine Specific [place] 1.022 1.001-1.035 Urine Protein 1+ H Negative Urine Ketones Trace Negative Urine Blood Negative Negative /uL Urine Nitrite Negative Negative Urine Bilirubin Negative Negative Urine Urobilinogen Normal Negative mg/dL Urine Leukocyte Esterase Negative Negative /uL Urine RBC 1 0 - 3 /hpf Urine Microscopic WBC 5 H 0-3 /HPF Urine Squamous Epithelial Cells Few <5 /hpf Urine Bacteria None seen None Seen /hpf Urine Hyaline Casts Few 0 - 2 /lpf Urine Mucus Few None Seen Urine Glucose Normal Normal mg/dL Urine Opiates Screen Pending Urine Fentanyl Screen Pending Urine Barbiturates Screen Pending Urine Phencyclidine Screen Pending Urine Amphetamines Screen Pending Urine Benzodiazepines Screen Pending Urine Cocaine Screen Pending Urine Cannabinoids Screen Pending White Blood Count 9.5 4.4-10.8 10^3/uL Red Blood Count 5.08 4.5-5.90 10^6/uL Hemoglobin 15.2 13.5-17.5 g/dL Hematocrit 46.4 41.0-53.0 % Mean Corpuscular Volume 91.3 80.0-100.0 fL Mean Corpuscular Hemoglobin 30.0 28.0-32.0 pg Mean Corpuscular Hemoglobin Concent 32.8 32.0-36.0 g/dL Red Cell Distribution Width 13.3 11.8-14.3 % Platelet Count 211 140-450 10^3/uL Mean Platelet Volume 8.5 6.9-10.8 fL Neutrophils (%) (Auto) 70.7 37.0-80.0 % Lymphocytes (%) (Auto) 15.2 10.0-50.0 % Monocytes (%) (Auto) 11.9 0.0-12.0 % Eosinophils (%) (Auto) 1.7 0.0-7.0 % Basophils (%) (Auto) 0.5 0.0-2.0 % Neutrophils # (Auto) 6.7 1.6-8.6 10 ^3/uL Lymphocytes # (Auto) 1.4 0.4-5.4 10 ^3/uL Monocytes # (Auto) 1.1 0-1.3 10 ^3/uL Eosinophils # (Auto) 0.2 0-0.8 10 ^3/uL Basophils # (Auto) 0.1 0-0.2 10 ^3/uL Nucleated Red Blood Cells 0.1 % POC Glucose 113 H 70-106 mg/dl Patient is a 74-year-old male with a past medical history of hypertension, hyperlipidemia, atrial fibrillation was brought in by EMS with a chief complaint of altered mental status noticed by the family. Brother reports he found him confused and not able to answer questions properly following which he called the EMS. On arrival to the ED patient was A&O x2 and was confused. Head CT without contrast shows no acute intracranial abnormality chest x-ray was grossly normal. Given the patient's age and confusion he will need further inpatient management and will be admitted. The brother in the patient agrees with the management plan. Time of 1ST Reevaluation: 16:58 Reevaluation 1ST: Improved Patient Education/Counseling: Diagnosis, Treatment, Prognosis Family Education/Counseling: Diagnosis, Treatment, Prognosis SEPSIS Sepsis Screen Date sepsis recognized/suspect: Mar 16, 2025 Time Sepsis recognized/suspect: 1444 Recent Procedure: No On Antibiotic Therapy: No Respiratory Rate >20: No Heart Rate >90: No Temp<36 C (96.8 F) or >38.3 C: No SBP <90 or MAP <65 mmHG: No New Acute Mental Status Change: No Is the patient on CPAP, BIPAP,: No Physician Orders Head Without Contrast (03/16/25 15:22) Basic Metabolic Panel (03/16/25 15:22) Drug Screen (03/16/25 15:22) Blood Alcohol (03/16/25 15:22) Chest Xray 1 View (03/16/25 15:27) Vital Signs Date Time Temp Pulse Resp B/P (MAP) Pulse Ox O2 Delivery O2 Flow Rate FiO2 03/16/25 16:10 62 03/16/25 16:00 60 17 113/74 (87) 92 03/16/25 15:46 63 03/16/25 15:00 66 14 94 Room Air* 0 21 03/16/25 15:00 63 03/16/25 15:00 98.2 66 14 131/71 (91) 94 98.2 03/16/25 14:45 98.3 77 16 133/77 (95) 92 98.3 Laboratory Tests Test 03/16/25 15:33 White Blood Count 9.5 10^3/uL (4.4-10.8) Departure 1 Departure Time of Disposition: 17:45 Impression: Primary Impression: Altered mental status Additional Impressions: Metabolic encephalopathy History of CHF (congestive heart failure) History of atrial fibrillation Disposition: ADMITTED INPATIENT Condition: Fair Critical Care Note Critical Care Time?: No Stability Stability form required: No Heart Score Heart Score: Heart Score Response (Comments) Value History N/A 0 EKG N/A 0 Age N/A 0 Risk Factors N/A 0 Troponin N/A 0 Total 0 SHAUNNA STARR RESIDENT Mar 16, 2025 15:31
[2025-03-16 15:50] LABS: Hematocrit 46.4 % (41.0-53.0); Hemoglobin 15.2 g/dL (13.5-17.5); Mean Corpuscular Hemoglobin 30.0 pg (28.0-32.0); Mean Corpuscular Volume 91.3 fL (80.0-100.0); Nucleated Red Blood Cells % 0.1 %
--- NOTE | 2025-03-16 15:58 | DVH ---
EXAM: XY CHEST XRAY 1 VIEW TECHNIQUE: Single frontal chest radiograph CLINICAL HISTORY: SOB COMPARISON: XY CHEST XRAY 1 VIEW on DOS: 10/16/23, XY CHEST PORTABLE on DOS: 04/28/23 Findings/Impression: Frontal chest radiograph demonstrates no acute osseous or superficial soft tissue abnormalities. The trachea is midline. The cardiac silhouette and mediastinum are within normal limits. Mild left basilar atelectasis. No pneumothorax, pleural effusions, or consolidations.
--- NOTE | 2025-03-16 16:06 | DVH ---
EXAM: CT HEAD WITHOUT CONTRAST INDICATION: ALOC TECHNIQUE: CT of the head without intravenous contrast. Radiation Dose Information: CT Dose: CTDI volume is 56.4 mGy. Dose-length product is 1182.21 mGy*cm The dose indicators for CT are the volume Computed Tomography (CT) Dose Index (CTDIvol) and the Dose Length Product (DLP), and are measured in units of mGy and mGy-cm, respectively. These indicators are not patient dose, but values generated from the CT scanner acquisition factors. The report includes radiation exposure data for exposures received during this examination. COMPARISON: CT HEAD WITHOUT CONTRAST on DOS: 10/15/23, CT HEAD WITHOUT CONTRAST on DOS: 06/21/23 FINDINGS: There is no evidence of acute intracranial hemorrhage, extra-axial collection, mass effect, midline s hift, herniation or hydrocephalus. The ventricles, sulci and cisterns are age appropriate. The porter-white differentiation is intact. Patchy periventricular and subcortical white matter hypoattenuation is nonspecific but may be related to small vessel ischemic disease. Small inclusion cysts left maxillary sinus and mastoid air cells are clear. The surrounding soft tissues and osseous structures are unremarkable. IMPRESSION: 1. No acute intracranial abnormality.
[2025-03-16 17:09] LABS: Urine Protein, UAD 1+ (Negative)
[2025-03-16 17:32] LABS: Anion Gap 8 (5-15)
[2025-03-16 18:14] LABS: Amphetamine Screen, Urine Neg (NEGATIVE); Barbiturate Scree,Urine Neg (NEGATIVE); Benzodiazephine Screen, Urine Neg (NEGATIVE); Cannabinoid Screen, Urine Neg (NEGATIVE); Cocaine Screen, Urine Neg (NEGATIVE); Opiate Scree,Urine Neg (NEGATIVE); Phencyclidine Screen, Urine Neg (NEGATIVE)
[2025-03-16 18:16] LABS: BUN/Creatinine Ratio 10.9 (10.0-20.0); Blood Urea Nitrogen 14 mg/dL (9-23); Calcium 10.3 mg/dL (8.7-10.4); Carbon Dioxide 28 mmol/L (20-31); Chloride 102 mmol/L (98-107); Glucose 92 mg/dL (74-106); Potassium 4.7 mmol/L (3.5-5.1); Sodium 138 mmol/L (136-145)
[2025-03-16] MEDS: FUROSEMIDE 20 MG/2 ML VIAL IV ONE (18:27)
[2025-03-16 19:53] VITALS: TEMP 98
[2025-03-16] MEDS: hydrALAZINE HCL 20 MG/ML VL IV ONE ×2 (19:53→22:08)
[2025-03-16 21:10] LABS: Alanine Aminotransferase 15 U/L (7-40); Albumin 4.0 g/dL (3.2-4.8); Alkaline Phosphatase 97 U/L (46-116); Anion Gap 12 (5-15); BUN/Creatinine Ratio 12.0 (10.0-20.0); Bilirubin, Total 0.9 mg/dL (0.2-1.0); Blood Urea Nitrogen 13 mg/dL (9-23); Calcium 9.0 mg/dL (8.7-10.4); Carbon Dioxide 24 mmol/L (20-31); Chloride 105 mmol/L (98-107); Glucose 92 mg/dL (74-106); Potassium 3.9 mmol/L (3.5-5.1); Sodium 141 mmol/L (136-145); Total Protein 6.1 g/dL (5.7-8.2)
--- NOTE | 2025-03-16 21:46 | DVHINCON2 ---
JOSE ARCEO [facility] 03/16/25 2146: Date of service: Mar 16, 2025 Referring Phys[address] ED Provider Dr. Martinez Reason for Consultation Medical Management History of Present Illness Mr. Aries Rae is a 74 yo male with known history of hypertension, hyperlipidemia, atrial fibrillation who presents with a chief complaint of altered mental status Alert and oriented x 2 as reported per family. Patient seen at bedside currently is alert and oriented x4, denies any headaches, blurry vision, numbness or tingling of extremities, nausea, vomiting, fevers, chills, chest pain, dyspnea, abdominal pain, dysuria. Past Medical History Hypertension, Hyperlipidemia, atrial fibrillation Past Surgical History none reported Family History: Cerebrovascular accident (CVA) G8 FATHER Hypertension G8 MOTHER G8 FATHER Family History none contributory Allergies: Coded Allergies: No Known Drug Allergy (Verified Allergy, Unknown, 04/28/23) Home Meds Active Scripts Metoprolol Tartrate (Metoprolol Tartrate) 100 Mg Tab, 100 MG PO BID, #120 MG Prov:TERRI GRIFFIN MD 10/17/23 Rivaroxaban (Xarelto Tablet) 20 Mg Tb, 1 TAB PO DAILY, #90 TAB Prov:TERRI GRIFFIN MD 10/17/23 Furosemide (Furosemide) 20 Mg Tab, 40 MG PO DAILY, #120 TAB Prov:TERRI GRIFFIN MD 10/17/23 Reported Medications Curcuma Longa (Turmeric) Extra (TURMERIC) 500 Mg Cap, 2 CAP OR BID, CAP 01/23/24 Cinnamomum [place] Extract (Cinnamon Extract) 500 Mg Cap, 2 CAP PO QPM, CAP 01/23/24 Ascorbic Acid (VITAMIN C TABLET) 500 Mg Tb, 500 MG PO DAILY, TAB 01/23/24 Fiber (FIBER FORMULA) Cap, 2 OR BID, CAP 01/23/24 Omeprazole (Gnp Omeprazole) 20 Mg Tab, 1 TAB PO DAILY, #90 TAB 1 Refill 10/17/23 Multiple Vitamin (Mvi Tab) 1 Tab Tb, 1 TAB PO DAILY, TAB 10/17/23 Atorvastatin Calcium (ATORVASTATIN CALCIUM) 40 Mg Tab, 1 TAB PO DAILY 10/17/23 Irbesartan (IRBESARTAN) 300 Mg Tab, 1 TAB PO DAILY 10/17/23 Review of Systems none reported Vital Signs Vital Signs Date Time Temp Pulse Resp B/P (MAP) Pulse Ox O2 Delivery O2 Flow Rate FiO2 03/16/25 19:53 98.0 60 17 188/76 (113) 93 98.0 03/16/25 19:28 Room Air* 0 21 Physical Exam HEENT pupils are reactive Neck is supple CV is S1-S2 regular rate and rhythm Respiratory diminished breath sounds bases GI positive bowel sound Extremity no 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 Labs/Diagnostic Data Labs Test 03/16/25 20:25 03/16/25 17:09 03/16/25 16:50 03/16/25 15:33 Range/Units Sodium Level 141 136-145 mmol/L Potassium Level 3.9 3.5-5.1 mmol/L Chloride Level 105 98-107 mmol/L Carbon Dioxide Level 24 20-31 mmol/L Anion Gap 12 5-15 Blood Urea Nitrogen 13 9-23 mg/dL Creatinine 1.08 0.700-1.30 mg/dL Glomerular Filtration Rate Calc 72 >90 mL/min BUN/Creatinine Ratio 12.0 10.0-20.0 Serum Glucose 92 74-106 mg/dL Calcium Level 9.0 8.7-10.4 mg/dL Total Bilirubin 0.9 0.2-1.0 mg/dL Aspartate Amino Transferase (AST) 39 13-40 U/L Alanine Aminotransferase (ALT) 15 7-40 U/L Alkaline Phosphatase 97 46-116 U/L Ammonia 19 11-32 umol/L Total Protein 6.1 5.7-8.2 g/dL Albumin 4.0 3.2-4.8 g/dL Plasma/Serum Blood Alcohol < 3.0 <10 mg/dL Urine Color Yellow Yellow Urine Clarity Clear Clear Urine pH 6.5 5.0-9.0 Urine Specific [place] 1.022 1.001-1.035 Urine Protein 1+ H Negative Urine Ketones Trace Negative Urine Blood Negative Negative /uL Urine Nitrite Negative Negative Urine Bilirubin Negative Negative Urine Urobilinogen Normal Negative mg/dL Urine Leukocyte Esterase Negative Negative /uL Urine RBC 1 0 - 3 /hpf Urine Microscopic WBC 5 H 0-3 /HPF Urine Squamous Epithelial Cells Few <5 /hpf Urine Bacteria None seen None Seen /hpf Urine Hyaline Casts Few 0 - 2 /lpf Urine Mucus Few None Seen Urine Glucose Normal Normal mg/dL Urine Opiates Screen Neg NEGATIVE Urine Fentanyl Screen Neg NEGATIVE Urine Barbiturates Screen Neg NEGATIVE Urine Phencyclidine Screen Neg NEGATIVE Urine Amphetamines Screen Neg NEGATIVE Urine Benzodiazepines Screen Neg NEGATIVE Urine Cocaine Screen Neg NEGATIVE Urine Cannabinoids Screen Neg NEGATIVE White Blood Count 9.5 4.4-10.8 10^3/uL Red Blood Count 5.08 4.5-5.90 10^6/uL Hemoglobin 15.2 13.5-17.5 g/dL Hematocrit 46.4 41.0-53.0 % Mean Corpuscular Volume 91.3 80.0-100.0 fL Mean Corpuscular Hemoglobin 30.0 28.0-32.0 pg Mean Corpuscular Hemoglobin Concent 32.8 32.0-36.0 g/dL Red Cell Distribution Width 13.3 11.8-14.3 % Platelet Count 211 140-450 10^3/uL Mean Platelet Volume 8.5 6.9-10.8 fL Neutrophils (%) (Auto) 70.7 37.0-80.0 % Lymphocytes (%) (Auto) 15.2 10.0-50.0 % Monocytes (%) (Auto) 11.9 0.0-12.0 % Eosinophils (%) (Auto) 1.7 0.0-7.0 % Basophils (%) (Auto) 0.5 0.0-2.0 % Neutrophils # (Auto) 6.7 1.6-8.6 10 ^3/uL Lymphocytes # (Auto) 1.4 0.4-5.4 10 ^3/uL Monocytes # (Auto) 1.1 0-1.3 10 ^3/uL Eosinophils # (Auto) 0.2 0-0.8 10 ^3/uL Basophils # (Auto) 0.1 0-0.2 10 ^3/uL Nucleated Red Blood Cells 0.1 % Test 03/16/25 15:03 Range/Units POC Glucose 113 H 70-106 mg/dl Assessment This is a 74 yo male with known history of hypertension, hyperlipidemia, atrial fibrillation who presents to the hospital brought in by family for altered mental status at home AXO x 2. Patient AMS resolved while in ED and is now alert and oriented x4 . Patient labs are all unremarkable , ammonia level 19, Na 138, K 4.7, BUN 14/1.29, WBC 9.5, H&H 15.2/46.4, Platelets 211, UA negative for UTI, CT head wo contrast no acute intracranial abnormality, Chest X ray no acute cardiopulmonary disease, UDS negative. Patient was hypertensive in ED , Lasix IV and Hydralazine administered , current blood pressure 164/74, HR SR 63, Respirations 18, 02 saturations 95-98% room air. Problems(with codes): (1) History of atrial fibrillation (2) History of CHF (congestive heart failure) (3) Altered mental status Plan/Recommendation Patient AMS resolved while in ED and is now alert and oriented x4 . Patient labs are all unremarkable , ammonia level 19, Na 138, K 4.7, BUN 14/1.29, WBC 9.5, H&H 15.2/46.4, Platelets 211, UA negative for UTI, CT head wo contrast no acute intracranial abnormality, Chest X ray no acute cardiopulmonary disease, UDS negative. Patient was hypertensive in ED , Lasix IV and Hydralazine administered , current blood pressure 164/74, HR SR 63, Respirations 18, 02 saturations 95- 98% room air. No admission criteria met at this time, discussed with patient and patient brother Adam over the phone plan for discharge home , resume home medications as prescribed by PCP and follow up with PCP in 3-5 days. Both verbalized agreement and understanding. Discussed all above with ER Provider Dr. Martinez . Discussed with supervising MD Dr. Ruelas. [facility] MICHAEL Ty consulted for outpatient follow up with PCP appointment. Plan discussed with: Patient, Other TERRI GRIFFIN MD 03/17/25 8358: Family History: Cerebrovascular accident (CVA) G8 FATHER Hypertension G8 MOTHER G8 FATHER Allergies: Coded Allergies: No Known Drug Allergy (Verified Allergy, Unknown, 04/28/23) Home Meds Active Scripts Metoprolol Tartrate (Metoprolol Tartrate) 100 Mg Tab, 100 MG PO BID, #120 MG Prov:TERRI GRIFFIN MD 10/17/23 Rivaroxaban (Xarelto Tablet) 20 Mg Tb, 1 TAB PO DAILY, #90 TAB Prov:TERRI GRIFFIN MD 10/17/23 Furosemide (Furosemide) 20 Mg Tab, 40 MG PO DAILY, #120 TAB Prov:TERRI GRIFFIN MD 10/17/23 Reported Medications Curcuma [place]a (Turmeric) Extra (TURMERIC) 500 Mg Cap, 2 CAP OR BID, CAP 01/23/24 Cinnamomum [place] Extract (Cinnamon Extract) 500 Mg Cap, 2 CAP PO QPM, CAP 01/23/24 Ascorbic Acid (VITAMIN C TABLET) 500 Mg Tb, 500 MG PO DAILY, TAB 01/23/24 Fiber (FIBER FORMULA) Cap, 2 OR BID, CAP 01/23/24 Omeprazole (Gnp Omeprazole) 20 Mg Tab, 1 TAB PO DAILY, #90 TAB 1 Refill 10/17/23 Multiple Vitamin (Mvi Tab) 1 Tab Tb, 1 TAB PO DAILY, TAB 10/17/23 Atorvastatin Calcium (ATORVASTATIN CALCIUM) 40 Mg Tab, 1 TAB PO DAILY 10/17/23 Irbesartan (IRBESARTAN) 300 Mg Tab, 1 TAB PO DAILY 10/17/23 Additional Comments Additional Comments Additional Comments Patient's chart is reviewed and discussed with the nurse practitioner. Patient is seen and evaluated by nurse practitioner. I agree with her evaluation, documentation, assessment and care plan as outlined. JOSE ARCEO [employer] Mar 16, 2025 21:46 TERRI GRIFFIN MD Mar 17, 2025 17:38
[2025-03-16 22:00] VITALS: BP 164/80; PULSE 62; RESP 17; O2SAT 92
== END 2025-03-16 22:21 | disposition home or self-care (01) ==
LOC: ER 14:40 → EDBD 14:40 → ER 22:21
DX: R41.82 Altered mental status, unspecified (principal); G93.41 Metabolic encephalopathy; I11.0 Hypertensive heart disease with heart failure; I50.9 Heart failure, unspecified; I48.91 Unspecified atrial fibrillation; E78.5 Hyperlipidemia, unspecified; Z79.899 Other long term (current) drug therapy; Z79.01 Long term (current) use of anticoagulants; Z98.890 Other specified postprocedural states
CPT/HCPCS: 36415; 70450; 71045; 80048; 80053; 80307; 80320; 81001; 82140; 82962; 85025; 93005; 96374; 96375; 96376; 99285; J0360; J1940